=== PATIENT | male | born 1975 | race Two or more races ===

== ENCOUNTER 2024-11-03 04:27 | Emergency (ER) | payer OTHER ==
[~2024-11-03] VITALS: Ht 167.6 cm; Wt 63.5 kg
[~2024-11-03 04:27] MED LIST: CHOL500062; ESCI-9; LIDO30AD10 TP; POLYETHYLENE; QUET25TA; TAMS-3; ferrous sulfate; senna
[2024-11-03 05:18] VITALS: BP 126/74; TEMP 97.7; O2SAT 96
== END 2024-11-03 05:19 | disposition home or self-care (01) ==
LOC: ER 04:32
DX: S50.02XA Contusion of left elbow, initial encounter (principal); M25.522 Pain in left elbow; F32.A Depression, unspecified; F41.9 Anxiety disorder, unspecified; W18.39XA Other fall on same level, initial encounter; Y93.89 Activity, other specified; Y92.89 Other specified places as the place of occurrence of the external cause; Y99.8 Other external cause status
CPT/HCPCS: A4606; A4663